=== PATIENT | male | born 1960 | race Caucasian/White ===

== ENCOUNTER 2018-09-06 19:40 | Emergency (ER) | payer MEDICAID ==
[~2018-09-06] VITALS: Ht 177.8 cm; Wt 67.1 kg
[2018-09-06] MEDS ORDERED: HYDROcodone/acetaminophen 10/325mg tab PO ONE (21:20)
[2018-09-06 22:40] VITALS: BP 126/70
== END 2018-09-06 23:03 ==
LOC: ER 19:41
DX: S01.111A Laceration without foreign body of right eyelid and periocular area, initial encounter (principal); S90.01XA Contusion of right ankle, initial encounter; S70.02XA Contusion of left hip, initial encounter; S30.1XXA Contusion of abdominal wall, initial encounter; Y08.89XA Assault by other specified means, initial encounter; Y93.89 Activity, other specified; Y92.89 Other specified places as the place of occurrence of the external cause; Y99.8 Other external cause status
CPT/HCPCS: 12013; 70450; 99284